=== PATIENT | male | born 1990 | race Caucasian/White ===

== ENCOUNTER 2018-10-15 09:42 | Emergency (ER) | payer MEDICAID ==
[~2018-10-15] VITALS: Ht 167.6 cm; Wt 93.5 kg
[2018-10-15 10:07] VITALS: BP 108/64
[2018-10-15] MEDS ORDERED: PENI500T2 PO (10:34)
== END 2018-10-15 10:55 | disposition home or self-care (01) ==
LOC: ER 09:43
DX: J02.0 Streptococcal pharyngitis (principal); F17.200 Nicotine dependence, unspecified, uncomplicated; Z88.6 Allergy status to analgesic agent; Z79.899 Other long term (current) drug therapy
CPT/HCPCS: 99283

== ENCOUNTER 2019-02-14 16:31 | Emergency (ER) | payer MEDICAID ==
[~2019-02-14] VITALS: Ht 167.6 cm; Wt 105.5 kg
[2019-02-14 16:37] VITALS: BP 121/67
[2019-02-14] MEDS ORDERED: hydrOXYzine 10 MG tablet PO STA (16:48)
[2019-02-14] MEDS ORDERED: triamcinolone acetonide 40mg/ml inj IM ONE (16:50)
[2019-02-14] MEDS ORDERED: HYDR28CR14 TOP (16:52)
[2019-02-14] MEDS ORDERED: HYDR-3717 PO (16:52)
== END 2019-02-14 17:05 | disposition home or self-care (01) ==
LOC: ER 16:31
DX: L23.7 Allergic contact dermatitis due to plants, except food (principal); Z91.040 Latex allergy status; Z88.6 Allergy status to analgesic agent
CPT/HCPCS: 96372; 99283; J3301

== ENCOUNTER 2019-05-31 09:17 | Emergency (ER) | payer MEDICAID ==
[~2019-05-31] VITALS: Ht 167.6 cm; Wt 90.0 kg
[~2019-05-31 09:17] MED LIST: HYDR28CR14 TOP
[2019-05-31 09:37] LABS: CLARITY,URINE SLIGHTLY CLOUDY (Clear); COLOR,URINE YELLOW (Yellow); GLUCOSE, URINE NEGATIVE (Neg); KETONES,URINE NEGATIVE (Neg); LEUKOCYTE ESTERASE ,URINE NEGATIVE (Neg); NITRITES, URINE NEGATIVE (Neg); OCCULT BLOOD,URINE MODERATE (Neg); PROTEIN,URINE NEGATIVE (Neg); UA COLLECTION TYPE CLN CATCH MIDSTREAM; UROBILINOGEN,URINE 0.2 E.U/dL (0.2-1.0)
[2019-05-31 09:52] LABS: MUCUS STRANDS MANY /LPF (Neg); SQUAMOUS EPITHELIAL CELL,UR MANY /LPF (FEW)
[2019-05-31 09:53] LABS: BACTERIA,URINE FEW /HPF (Neg); WBC,URINE 0-4 /HPF (0-4)
[2019-05-31] MEDS ORDERED: ketorolac tromethamine 15mg/ml inj. IM ONE (11:35)
[2019-05-31 11:43] VITALS: BP 127/83
[2019-06-01] MEDS ORDERED: TRAM50TA2 PO (00:09)
[2019-06-01] MEDS ORDERED: DOXY100C43 PO (00:09)
[2019-06-01] MEDS ORDERED: ONDA4TAB6 PO (00:09)
== END 2019-05-31 11:50 | disposition home or self-care (01) ==
LOC: ER 09:18 → EDSEX 09:18 → ER 11:50
DX: R31.9 Hematuria, unspecified (principal); R30.0 Dysuria; M54.5 Low back pain; Z88.6 Allergy status to analgesic agent; Z91.040 Latex allergy status; Z79.899 Other long term (current) drug therapy
CPT/HCPCS: 74176; 81001; 96372; 99284; J1885

== ENCOUNTER 2019-05-31 20:34 | Emergency (ER) | payer MEDICAID ==
[~2019-05-31] VITALS: Ht 167.6 cm; Wt 97.0 kg
[2019-05-31 21:06] LABS: CLARITY,URINE SLIGHTLY CLOUDY (Clear); COLOR,URINE YELLOW (Yellow); GLUCOSE, URINE NEGATIVE (Neg); KETONES,URINE TRACE mg/dl (Neg); LEUKOCYTE ESTERASE ,URINE NEGATIVE (Neg); NITRITES, URINE NEGATIVE (Neg); OCCULT BLOOD,URINE MODERATE (Neg); PROTEIN,URINE 30 mg/dl (Neg); UROBILINOGEN,URINE 0.2 E.U/dL (0.2-1.0)
[2019-05-31 21:07] LABS: UA COLLECTION TYPE VOIDED
[2019-05-31 21:21] LABS: BASOPHILS # (AUTO) 0.1 X10'3 (0-0.2); BASOPHILS % (AUTO) 0.8 % (0-1); EOSINOPHILS # (AUTO) 0.1 X10'3 (0-0.9); HEMOGLOBIN 15.6 g/dl (12.0-16.0); LYMPHOCYTES # (AUTO) 3.2 X10'3 (1.1-4.8); LYMPHOCYTES % (AUTO) 26.3 % (21-51); MEAN CORPUSCULAR HEMOGLOBIN 31.5 PG (27.0-31.0); MEAN CORPUSCULAR HGB CONC 33.2 g/dL (33.0-36.5); MEAN PLATELET VOLUME 9.1 FL (7.4-10.4); MONOCYTES % (AUTO) 7.8 % (2-12); NEUTROPHILS # (AUTO) 7.9 X10'3 (1.8-7.7); NEUTROPHILS % (AUTO) 64.1 % (42-75); PLATELET COUNT 251 X10'3 (140-440); RED BLOOD COUNT 4.95 X10'6 (4.20-5.60); RED CELL DISTRIBUTION WIDTH 13.3 % (11.5-14.5); WHITE BLOOD COUNT 12.3 X10'3 (4.5-11.0)
[2019-05-31 21:23] LABS: URINE HCG NEGATIVE (NEG)
[2019-05-31 21:31] LABS: BACTERIA,URINE FEW /HPF (Neg); SQUAMOUS EPITHELIAL CELL,UR FEW /LPF (FEW); WBC,URINE 0-4 /HPF (0-4)
[2019-05-31 21:32] LABS: ALANINE AMINOTRANSFERASE 31 U/L (12-78); ALBUMIN 3.8 G/DL (3.4-5.0); ALKALINE PHOSPHATASE 87 IU/L (46-116); ANION GAP 11 (8-16); ASPARTATE AMINO TRANSFERASE 12 U/L (10-37); BILIRUBIN,TOTAL 0.4 MG/DL (0.1-1.0); BLOOD UREA NITROGEN 15 MG/DL (7-18); BUN/CREATININE RATIO 14.4 (6.6-38.0); CALCIUM 9.3 MG/DL (8.5-10.1); CHLORIDE 109 MMOL/L (99-107); CREATININE 1.04 MG/DL (0.40-0.90); GLUCOSE 111 MG/DL (70-104); POTASSIUM 4.2 MMOL/L (3.5-5.1); SODIUM 143 MMOL/L (135-145); TOTAL CARBON DIOXIDE 22.9 MMOL/L (24-32); TOTAL PROTEIN 7.6 G/DL (6.4-8.2); eGFR 63 ML/MIN
[2019-05-31 21:32] LABS: MUCUS STRANDS FEW /LPF (Neg)
--- NOTE | 2019-05-31 21:52 | NUR ---
PT AT TRIAGE, C/O LEFT FLANK PAIN, "I JUST WANT TO KNOW WHAT IS GOING ON", VITAL SIGNS STABLE, PT AMB WITH STEADY GAIT, INSTRUCTED PT AGAIN TO SLOW BREATHING DOWN AND TRY TO TAKE DEEP BREATHES, WAITING FOR BED AND EVAL BY PROVIDER
[2019-05-31] MEDS ORDERED: CefTRIAXone/D5W-Rocephin 1gm 50 ML IV ONE (23:00)
[2019-05-31] MEDS ORDERED: ketorolac tromethamine 15mg/ml inj. IV ONE (23:00)
[2019-05-31] MEDS ORDERED: ondansetron/PF 4mg/2ml inj IV ONE (23:00)
[2019-05-31] MEDS ORDERED: normal saline 1000ML IV soln IVB ONE (23:00)
[2019-05-31] MEDS ORDERED: morphine 4 MG/ML inj SYRINge IV ONE (23:00)
[2019-05-31] MEDS ORDERED: LORazepam 2 mg/ml vial IV ONE (23:00)
[2019-06-01] MEDS ORDERED: ONDA4TAB6 PO (00:09)
[2019-06-01] MEDS ORDERED: TRAM50TA2 PO (00:09)
[2019-06-01] MEDS ORDERED: DOXY100C43 PO (00:09)
[2019-06-01] MEDS ORDERED: morphine 4 MG/ML inj SYRINge IV ONE (00:35)
[2019-06-01] MEDS ORDERED: ondansetron/PF 4mg/2ml inj IV ONE (00:35)
[2019-06-01 01:31] VITALS: BP 136/82
== END 2019-06-01 01:34 | disposition home or self-care (01) ==
LOC: ER 20:34
DX: N73.9 Female pelvic inflammatory disease, unspecified (principal); N39.0 Urinary tract infection, site not specified; R11.2 Nausea with vomiting, unspecified; R79.1 Abnormal coagulation profile; Z88.6 Allergy status to analgesic agent; Z91.040 Latex allergy status; Z79.899 Other long term (current) drug therapy
CPT/HCPCS: 36415; 76830; 76856; 80053; 81001; 81025; 85025; 85610; 87210; 87491; 87591; 96365; 96375; 96376; 99284; J0696; J1885; J2060; J2270; J2405; J7030